=== PATIENT | female | born 1975 | race Caucasian/White ===

== ENCOUNTER 2016-11-24 13:01 | Emergency (ER) | payer MEDICAID ==
--- NOTE | 2016-11-24 13:05 | EDPHY ---
H & P Time Seen by Provider: 11/24/16 13:05 HPI/ROS: CHIEF COMPLAINT: Requesting medication refill HISTORY OF PRESENT ILLNESS: The the patient presents the emergency department requesting a refill of her medications including Premarin, trazodone and Effexor. The patient has been incarcerated for the past 4 have months. She had been on those medications up until her released from [facility] 2 days ago. The patient presents to the ED today with complaints of a mild headache and nausea. The patient denies fever, neck pain, numbness, weakness or additional complaints. REVIEW OF SYSTEMS: A comprehensive 10 point review of systems is otherwise negative aside from elements mentioned in the history of present illness. Source: Patient Exam Limitations: No limitations - Personal History Tetanus Vaccine Date: 2012 - Medical/Surgical History Hx Asthma: No Hx Chronic Respiratory Disease: No Hx Diabetes: No Hx Cardiac Disease: No Hx Renal Disease: No Hx Cirrhosis: No Hx Alcoholism: Yes Hx HIV/AIDS: No Hx Splenectomy or Spleen Trauma: No Other PMH: cervical/uterin CA@22y/o; hysterectomy; ventral hernia surgery; - Social History Smoking Status: Light smoker - Physical Exam Exam: General Appearance: Alert, no distress Eyes: Pupils equal and round no pallor or injection ENT, Mouth: Mucous membranes moist Respiratory: There are no retractions, lungs are clear to auscultation Cardiovascular: Regular rate and rhythm Gastrointestinal: Abdomen is soft and nontender, no masses, bowel sounds normal Neurological: A&O, normal motor function, normal sensory exam, normal cranial nerves Skin: Warm and dry, no rashes Musculoskeletal: Neck is supple nontender Extremities: symmetrical, full range of motion Constitutional: Initial Vital Signs Temperature (C) 36.7 C 11/24/16 13:07 Heart Rate 67 11/24/16 13:07 Respiratory Rate 18 11/24/16 13:07 Blood Pressure 141/87 H 11/24/16 13:07 O2 Sat (%) 96 11/24/16 13:07 O2 Delivery Mode Room Air Allergies/Adverse Reactions: No Known Allergies Allergy (Verified 11/24/16 13:12) Home Medications: Medication Instructions Recorded ANTABUSE 10/07/13 Wellbutrin Sr 10/07/13 Clonazepam 12/26/13 Albuterol [Proventil] 2 puffs IH Q4-6PRN PRN #1 mdi 06/22/14 Estrogens,Conjugated [Premarin 0.625 mg PO DAILY #30 tab 11/24/16 0.625 MG (*)] Venlafaxine Xr [Effexor Xr 75MG 75 mg PO DAILY #30 cap 11/24/16 (*)] traZODone [traZODONE 100MG (*)] 100 mg PO HS #30 tab 11/24/16 Medical Decision Making ED Course/Re-evaluation: The patient presents to the ED trazodone, Premarin and Effexor. The patient is in no acute distress. The patient did receive a Zofran ODT for mild vomiting. The patient will be given a 30 day refill of her regular medications. Our rn case manager has the established a follow-up appointment with that patient's PCP at [facility]. Departure - Departure Disposition: Home, Routine, Self-Care Clinical Impression: Vomiting Condition: Good Instructions: Acute Nausea and Vomiting (ED) Additional Instructions: 1. Please follow-up at [facility] in the next week to re-establish primary care. Prescriptions: Estrogens,Conjugated [Premarin 0.625 MG (*)] 0.625 mg PO DAILY #30 tab traZODone [traZODONE 100MG (*)] 100 mg PO HS #30 tab Venlafaxine Xr [Effexor Xr 75MG (*)] 75 mg PO DAILY #30 cap
[2016-11-24 13:12] VITALS: BP 141/87; PULSE 67; RESP 18; TEMP 98.1; O2SAT 96
[2016-11-24] MEDS ORDERED: ONDANSETRON DISINTEGRATING 4 MG TAB PO ONE (13:24)
== END 2016-11-24 13:43 | disposition home or self-care (01) ==
DX: R11.10 Vomiting, unspecified (principal); F17.200 Nicotine dependence, unspecified, uncomplicated

== ENCOUNTER 2017-07-03 11:20 | Emergency (ER) | payer MEDICAID ==
[2017-07-03 11:25] VITALS: BP 128/86; PULSE 76; RESP 20; TEMP 98.1; O2SAT 97
--- NOTE | 2017-07-03 13:15 | EDPHY ---
H & P Time Seen by Provider: 07/03/17 12:13 HPI/ROS: CHIEF COMPLAINT: Productive cough HISTORY OF PRESENT ILLNESS: 41-year-old female presents with a productive cough. Onset of runny nose, sore throat and cough several days ago. Gradually increasing cough, productive of greenish sputum. Tolerating oral fluids well. No associated fever or shortness of breath. Did not receive a flu vaccination this year. REVIEW OF SYSTEMS: Constitutional: No fever, no chills Eyes: No visual changes Respiratory: no shortness of breath Cardiac: No chest pain Gastrointestinal: no vomiting, no abdominal pain Genitourinary: no dysuria Musculoskeletal: No myalgias Skin: No rash Neurological: No headache, no weakness Psychiatric: No depression Past Medical/Surgical History: Denies Social History: Living in a senior care house Smoking Status: Light smoker Physical Exam: General Appearance: Alert, pleasant, nontoxic-appearing Eyes: Pupils equal and round, no conjunctival injection ENT, Mouth: pharyngeal erythema Neck: Normal inspection Respiratory: Lungs are clear to auscultation, no wheezing Cardiovascular: Regular rate and rhythm Gastrointestinal: Abdomen is soft and nontender Neurological: A&O, nonfocal, normal gait Skin: Warm and dry Extremities: normal inspection Psychiatric: Mood and affect normal Constitutional: Initial Vital Signs Temperature (C) 36.7 C 07/03/17 11:23 Heart Rate 76 07/03/17 11:23 Respiratory Rate 20 07/03/17 11:23 Blood Pressure 128/86 H 07/03/17 11:23 O2 Sat (%) 97 07/03/17 11:23 O2 Delivery Mode Room Air Allergies/Adverse Reactions: shrimp Allergy (Intermediate, Verified 07/03/17 11:22) Vomiting Home Medications: Medication Instructions Recorded Wellbutrin Sr 10/07/13 Medical Decision Making ED Course/Re-evaluation: No evidence of pneumonia. Symptomatic treatment encouraged. Differential Diagnosis: Differential diagnosis includes but is not limited to pneumonia, otitis media, peritonsillar abscess, retropharyngeal abscess, meningitis. Departure - Departure Disposition: Home, Routine, Self-Care Clinical Impression: Acute bronchitis Condition: Good Instructions: Acute Bronchitis (ED) Additional Instructions: Return for fever, shortness of breath or any concerns. Drink plenty of fluids. Referrals: Rose Mary Chao MD [Primary Care Provider] - As per Instructions
== END 2017-07-03 13:33 | disposition home or self-care (01) ==
DX: J20.9 Acute bronchitis, unspecified (principal); F17.200 Nicotine dependence, unspecified, uncomplicated